=== PATIENT | female | born 1995 | race Two or more races ===

== ENCOUNTER 2023-04-24 15:56 | Inpatient (IN) | payer OTHER ==
[~2023-04-24] VITALS: Ht 167.6 cm; Wt 2.7 kg
[2023-04-24] MEDS ORDERED: PRENATAL TABLE1 EAC4 PO (16:13)
[2023-04-24] MEDS ORDERED: SYNTHROID100 MCG PO (16:14)
== END 2023-04-26 12:19 | disposition home or self-care (01) | DRG 788 ==
LOC: OB/GYN 15:56 → LDR 15:56 → O/R 23:24 → OB/GYN 23:26
PROVIDERS: ADMIT Obstetrics & Gynecology; ATTEND Obstetrics & Gynecology
PROC: 4A1HXCZ Monitoring of Products of Conception, Cardiac Rate, External Approach (ICD-10-PCS; 2023-04-24)
PROC: 10D00Z1 Extraction of Products of Conception, Low, Open Approach (ICD-10-PCS; principal; 2023-04-25)
DX: O32.1XX0 Maternal care for breech presentation, not applicable or unspecified (principal); Z3A.37 37 weeks gestation of pregnancy; Z37.0 Single live birth; Z20.822 Contact with and (suspected) exposure to COVID-19

== ENCOUNTER 2024-10-04 00:54 | Outpatient (CLI) | payer OTHER ==
[2024-10-03 22:44] VITALS: BP 102/60
[~2024-10-04] VITALS: Ht 167.6 cm; Wt 94.3 kg
[~2024-10-04 00:54] MED LIST: PRENATAL TABLE1 EAC4 PO; SYNTHROID100 MCG PO
[2024-10-04] MEDS ORDERED: CHILDREN'S ASPI81 MG PO (01:35)
[2024-10-04 02:51] VITALS: BP 107/60
[2024-10-04 07:35] VITALS: BP 112/68
[2024-10-04 11:08] VITALS: BP 118/72
[2024-10-04 11:55] VITALS: BP 118/72
== END 2024-10-04 11:55 | disposition home or self-care (01) ==
LOC: OBS/DEL 00:54
PROVIDERS: ATTEND Obstetrics & Gynecology
DX: O26.893 Other specified pregnancy related conditions, third trimester (principal); Z3A.31 31 weeks gestation of pregnancy

== ENCOUNTER 2024-10-27 13:41 | Outpatient (CLI) | payer OTHER ==
[~2024-10-27 13:41] MED LIST changes: +CHILDREN'S ASPI81 MG PO
== END 2024-10-27 15:02 | disposition home or self-care (01) ==
LOC: NST 13:41
PROVIDERS: ATTEND Obstetrics & Gynecology
DX: Z34.83 Encounter for supervision of other normal pregnancy, third trimester (principal)

== ENCOUNTER 2024-10-28 06:55 | Inpatient (IN) | payer OTHER ==
[~2024-10-28] VITALS: Ht 167.6 cm; Wt 95.3 kg
[2024-10-28 05:25] VITALS: BP 101/71
[2024-10-28] MEDS ORDERED: RINGERS SOLUTION,LACTATED 1,000 ML IV SCH (07:00)
[2024-10-28] MEDS ORDERED: AMPICILLIN SODIUM 2,000 MG VIAL IV ONE (07:15)
[2024-10-28 07:46] LABS: HEMOGLOBIN 12.8 g/dL (12.0-15.00); MEAN CELL VOLUME 94.3 fL (80.00-100.00); MEAN CORPUSCULAR HEMOGLOBIN 30.9 pg (27.00-32.0); MEAN CORPUSCULAR HGB CONC 32.7 g/dl (32.0-36.0); PLATELET COUNT 235 K/uL (150-450); RED BLOOD COUNT 4.14 M/uL (4.00-6.00); RED CELL DISTRIBUTION WIDTH 13.3 % (11.5-14.5); URINE APPEARANCE Cloudy; URINE BILIRRUBIN Negative (NEGATIVE); URINE BLOOD Large; URINE COLOR Dark Yellow; URINE GLUCOSE Negative (NEGATIVE); URINE KETONE Negative (NEGATIVE); URINE LEUKOCYTE Moderate; URINE NITRATE Negative; URINE PROTEIN Trace (NEGATIVE)
[2024-10-28 07:52] LABS: URINE BACTERIA 6402.7 uL (0.0-1933); URINE EPITHELIAL CELLS 44.8 uL (0.0-38.8); URINE RBC 290.1 uL (0.0-20.8); URINE WBC 740.4 uL (0.0-23.2)
[2024-10-28 07:58] LABS: INR 0.94; PARTIAL THROMBOPLASTIN TIME 28.5 SECONDS (22.0-34.0); PROTHROMBIN TIME 10.3 SECONDS (9.0-11.5)
[2024-10-28 08:10] LABS: URINE CAST 0.29 uL (0.0-1.40)
[2024-10-28 08:11] LABS: URINE CRYSTALS MANY /HPF
[2024-10-28] MEDS ORDERED: OXYTOCIN 1,000 ML IV SCH (08:30)
[2024-10-28] MEDS ORDERED: MORPHINE SULFATE 4 MG/ML CARTRIDGE IV PRN (08:30)
[2024-10-28 08:36] LABS: ALBUMIN 2.8 gm/dL (3.4-5.0); BILIRUBIN TOTAL 0.6 mg/dL (0.3-1.2); CALCIUM 8.9 mg/dL (8.5-10.1); CREATININE SERUM 0.62 mg/dL (0.55-1.02); GFR 113.02; GLOBULINA 3.8 G/DL (2.4-3.5); POTASSIUM 4.55 mEq/L (3.5-5.1); TOTAL PROTEIN 6.6 gm/dL (6.4-8.2)
[2024-10-28] MEDS ORDERED: OXYTOCIN 10 UNITS/ML VIAL IV ONE (08:45)
[2024-10-28] MEDS ORDERED: ERYTHROMYCIN BASE OPHT 1GM EACH TUBE OP ONE (08:45)
[2024-10-28] MEDS ORDERED: MORPHINE SULFATE 4 MG/ML VIAL IV ONE ×2 (10:50→11:40)
[2024-10-28 13:00] VITALS: BP 124/71
[2024-10-28 16:06] VITALS: BP 124/73
[2024-10-28 20:50] VITALS: BP 115/69
[2024-10-29 01:04] VITALS: BP 112/72
[2024-10-29 08:49] VITALS: BP 117/72
[2024-10-29] MEDS ORDERED: IBUprofen 400 MG TABLET PO SCH (09:00)
[2024-10-29] MEDS ORDERED: IBUprofen 400 MG TABLET PO PRN (09:57)
[2024-10-29 12:27] LABS: HEMATOCRIT 40.1 % (36.0-45.00); HEMOGLOBIN 13.3 g/dL (12.0-15.00); MEAN CELL VOLUME 93.9 fL (80.00-100.00); MEAN CORPUSCULAR HEMOGLOBIN 31.2 pg (27.00-32.0); MEAN CORPUSCULAR HGB CONC 33.2 g/dl (32.0-36.0); PLATELET COUNT 243 K/uL (150-450); RED BLOOD COUNT 4.28 M/uL (4.00-6.00); RED CELL DISTRIBUTION WIDTH 13.1 % (11.5-14.5)
[2024-10-29 15:30] VITALS: BP 110/72
[2024-10-30 00:29] VITALS: BP 99/60
[2024-10-30] MEDS ORDERED: OxyCODONE HCL 5 MG TABLET (ROXICODONE) PO PRN (06:00)
[2024-10-30 10:53] VITALS: BP 117/78
== END 2024-10-30 18:04 | disposition home or self-care (01) | DRG 786 ==
LOC: LDR 06:55 → O/R 08:56 → OB/GYN 11:26
PROVIDERS: ADMIT Obstetrics & Gynecology; ATTEND Obstetrics & Gynecology
PROC: 4A1HXCZ Monitoring of Products of Conception, Cardiac Rate, External Approach (ICD-10-PCS; 2024-10-28)
PROC: 10D00Z1 Extraction of Products of Conception, Low, Open Approach (ICD-10-PCS; principal; 2024-10-28 11:00)
DX: O32.1XX0 Maternal care for breech presentation, not applicable or unspecified (principal); O60.14X0 Preterm labor third trimester with preterm delivery third trimester, not applicable or unspecified; O34.211 Maternal care for low transverse scar from previous cesarean delivery; Z3A.34 34 weeks gestation of pregnancy; Z37.0 Single live birth; Z20.822 Contact with and (suspected) exposure to COVID-19